=== PATIENT | female | born 1935 | race Caucasian/White ===

== ENCOUNTER → 2017-10-17 | Outpatient (CLI) | payer MEDICARE | LOC: M WHC 09:47 | DX: Z12.31 Encounter for screening mammogram for malignant neoplasm of breast (principal); Z13.820 Encounter for screening for osteoporosis; M85.851 Other specified disorders of bone density and structure, right thigh; M85.852 Other specified disorders of bone density and structure, left thigh; M85.88 Other specified disorders of bone density and structure, other site | CPT/HCPCS: 77067 ==

== ENCOUNTER → 2019-03-27 | Outpatient (CLI) | payer MEDICARE ==
[~2019-03-27] MED LIST: ACET1TAB55 PO; CRES10TA PO; LISI-538 PO; VITACAP8 PO
--- NOTE | 2019-03-27 11:19 | REP ---
Clinical: Preoperative assessment. Hypertension. . Comparison: None . Technique: PA and lateral. Findings: The mediastinum and cardiac silhouette are normal. The lung lackey are clear and without acute consolidation, effusion, or pneumothorax. The skeletal structures are intact and normal. Impression: 1. No acute cardiopulmonary process. Electronically Signed by Andreas Paulino MD 03/27/2019 11:11 A
[2019-03-27 11:43] LABS: BLOOD UREA NITROGEN 18 MG/DL (7-18); CALCIUM LEVEL 10.9 MG/DL (8.8-10.2); CARBON DIOXIDE LEVEL 31 MEQ/L (21-32); CHLORIDE LEVEL 105 MEQ/L (98-107); CREATININE FOR GFR 0.64 MG/DL (0.55-1.30); GLOMERULAR FILTRATION RATE > 60.0 (>32); GLUCOSE, FASTING 102 MG/DL (70-100); SODIUM LEVEL 142 MEQ/L (136-145)
--- NOTE | 2019-03-28 19:50 | ECGEPIP ---
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
== END ==
LOC: M LAB 10:14
PROVIDERS: ATTEND Orthopaedic Surgery
DX: Z01.818 Encounter for other preprocedural examination (principal); M99.73 Connective tissue and disc stenosis of intervertebral foramina of lumbar region

== ENCOUNTER 2020-01-22 19:54 | Inpatient (IN) | payer MEDICARE ==
[~2020-01-22] VITALS: Ht 160 cm; Wt 81.8 kg
[2020-01-22] MEDS ORDERED: traMADol 50 MG TAB PO ONE (21:30)
[2020-01-22] MEDS ORDERED: TRAM-533 PO (21:32)
--- NOTE | 2020-01-22 22:23 | ED PDOC ---
Post-Departure Follow-Up D/W with Dr Kim at bedside. Attempted to ambulate while in immobilzer with crutches, but pt. could not. Will have to admit. Hospitalist called for admission. Consideration for knee surgery. JACQUES HITCHCOCK DO January 22, 2020 22:23
[2020-01-22] MEDS ORDERED: LISI20TA20 PO (22:29)
[2020-01-22] MEDS ORDERED: ACETAMINOPHEN TAB 650MG DOSE (2X325MG) PO PRN (23:15)
[2020-01-22] MEDS ORDERED: DEXTROSE 50% 50 ML SYRINGE IV PRN (23:15)
[2020-01-22] MEDS ORDERED: GLUCAGON INJ 1MG VIAL SC PRN (23:15)
--- NOTE | 2020-01-22 23:19 | HPEPDOC ---
[facility] Medical History & Physical Date of Admission January 22, 2020 Date of Service: January 22, 2020 Primary Care Physician: REJI MARIN MD [facility] Attending Physician: BART CAPPS MD History and Physical CHIEF COMPLAINT: left knee pain HISTORY OF PRESENT ILLNESS: Mago Nieto is an 84-year-old female who presents today with left knee pain. She states that she was washing her feet in a tub and while leaning over to wash them, her knee bent in and she felt a pop. She had immediate pain all around her knee. She was unable to bear weight on her knee. She was brought into the emergency department for further evaluation. She denies any additional symptoms, other than the acute onset of knee pain. In the emergency department, she was evaluated in the initial plan was to return home with a knee immobilizer and follow up outpatient with orthopedic surgery. However, she was unable to bear any weight on the left leg, even in the knee immobilizer. This was discussed with orthopedic surgery, who felt admission was appropriate for potential surgical intervention. PAST MEDICAL HISTORY: 1. Hypertension 2. Hyperlipidemia 3. Osteoarthritis PAST SURGICAL HISTORY: 1. Hysterectomy 2. Appendectomy 3. Bilateral cataracts 4. Left knee arthroscopy for torn meniscus 5. Carpal tunnel release SOCIAL HISTORY: Nonsmoker. No alcohol use. No illicit/IV drug use. 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 FAMILY HISTORY: Noncontributory ALLERGIES: Please see below. REVIEW OF SYSTEMS: CONSTITUTIONAL: Denies fevers, chills, night sweats, fatigue, unexpected change in weight. HEENT: Denies change in vision, change in hearing. CARDIOVASCULAR: Denies chest pain, palpitations, shortness of breath, lightheadedness. RESPIRATORY: Denies dyspnea, cough, wheezing. GASTROINTESTINAL: Denies nausea, vomiting, abdominal pain, diarrhea, constipation, blood in stool. GENITOURINARY: Denies dysuria, urinary frequency, urinary urgency. SKIN: Denies rash, lesions. MUSCULOSKELETAL: Left knee pain as noted in HPI. NEUROLOGICAL: Denies headache, dizziness, weakness. PSYCHIATRIC: Denies change in mood. HOME MEDICATIONS: Please see below. PHYSICAL EXAMINATION: VITAL SIGNS: See below GENERAL: Alert, comfortable, in no acute distress HEENT: Normocephalic, atraumatic, PERRLA, EOMI, moist mucous membranes NECK: Supple, trachea midline, no lymphadenopathy, no JVD CARDIOVASCULAR: Regular rate and rhythm, normal S1 and S2. No murmurs, rubs, or gallops RESPIRATORY: Clear to auscultation bilaterally with equal air entry bilaterally. No wheezing, rhonchi, or rales. ABDOMEN: Soft, nontender, nondistended, bowel sounds present, no masses or hepatosplenomegaly appreciated EXTREMITIES: No cyanosis or edema. Pulses 2+/4 in bilateral upper and lower extremities. Left leg in knee immobilizer. SKIN: [place], warm, dry NEUROLOGIC: Alert and oriented 3 to person, place and time. Cranial nerves 2-12 grossly intact. No focal deficits appreciated PSYCHIATRIC: Mood and affect appropriate LABORATORY DATA: See below. MICROBIOLOGY: Please see below. ASSESSMENT: 84-year-old female presenting with acute injury to the left knee, admitted for possible orthopedic surgical intervention. PLAN: 1. Left knee pain 2/2 trauma. X-ray films reviewed by ED physician, no fractures. Hx of osteoarthritis with plan for TKA. Patient cannot bear weight on the left leg at this point. Orthopedic surgery consulted for possible surgical intervention, appreciate their input and recommendations. Pain control with tramadol. Currently NPO with IV fluids and FSBS every 6 hours for possible surgery, pending orthopedic evaluation in the morning. PT/OT evaluation when appropriate, likely after surgical intervention 2. Cardiac clearance for surgery. Patient has a history of hypertension, hyperlipidemia, otherwise no cardiac history. Ordered EKG to be done in the morning to complete cardiac clearance prior to surgery 3. Hypertension and hyperlipidemia. Continue home lisinopril, hydrochlorothiazide, and rosuvastatin. DVT prophylaxis: Teds and SCDs. No medical prophylaxis due to possible surgical intervention. Disposition: Admitted inpatient to med/surg pending orthopedic evaluation and potential surgical intervention GME attestation: Patient was independently seen and examined, discussed with resident and agree with resident's assessment, plan and management. Vital Signs Vital Signs Date Time Temp Pulse Resp B/P (MAP) Pulse Ox O2 Delivery O2 Flow Rate FiO2 01/22/20 23:02 96.0 86 16 127/60 (82) 97 01/22/20 20:00 Room Air Home Medications Scheduled Lisinopril/Hydrochlorothiazide (Lisinopril-Hctz 20-25 mg Tab) 1 Each Tablet, 1 TAB PO DAILY Rosuvastatin Calcium (Crestor) 10 Mg Tablet, 10 MG PO DAILY Vitamin B Complex (Vitamin B Complex) 1 Each Capsule, 1 CAP PO DAILY Scheduled PRN Acetaminophen (Acetaminophen) 325 Mg Tablet, 650 MG PO QAMP PRN for PAIN TAKES IN THE MORNING FOR ARTHRITIS Allergies Coded Allergies: Penicillins (Verified Allergy, Intermediate, hives, 01/22/20) amoxicillin (Verified Allergy, Intermediate, hives, 01/22/20) clavulanic acid (Verified Allergy, Intermediate, hives, 01/22/20) TAPE (Unverified Allergy, Unknown, 01/22/20) CHILANGO LERMA D.O. January 22, 2020 23:19 BART CAPPS MD January 23, 2020 04:01
[2020-01-22 23:58] VITALS: BP 149/78
[2020-01-23] MEDS ORDERED: traMADol 50 MG TAB PO PRN ×2
[2020-01-23] MEDS: ROSUVASTATIN 10 MG TAB (CRESTOR) PO SCH ×2 (00:19→21:19)
[2020-01-23] MEDS ORDERED: CALCIUM CARBONATE 500 MG CHEW U/D PO PRN (02:00)
[2020-01-23] MEDS: NS 1,000 ML IV SCH ×2 (03:23→15:25)
[2020-01-23 06:17] VITALS: BP 129/66
[2020-01-23 07:41] LABS: HEMATOCRIT 36.5 % (36.0-47.0); HEMOGLOBIN 11.8 g/dl (12.0-15.5); MEAN CORPUSCULAR HEMOGLOBIN 29.1 pg (27.0-33.0); MEAN CORPUSCULAR HGB CONC 32.3 g/dl (32.0-36.5); MEAN CORPUSCULAR VOLUME 89.9 fl (80.0-96.0); PLATELET COUNT, AUTOMATED 235 10^3/uL (150-450); RED BLOOD COUNT 4.06 10^6/uL (4.00-5.40); WHITE BLOOD COUNT 9.3 10^3/uL (4.0-10.0)
[2020-01-23 07:58] LABS: BLOOD UREA NITROGEN 22 MG/DL (7-18); CALCIUM LEVEL 10.2 MG/DL (8.8-10.2); CARBON DIOXIDE LEVEL 26 MEQ/L (21-32); CHLORIDE LEVEL 107 MEQ/L (98-107); CREATININE FOR GFR 0.55 MG/DL (0.55-1.30); GLOMERULAR FILTRATION RATE > 60.0 (>32); GLUCOSE, FASTING 113 MG/DL (70-100); POTASSIUM SERUM 3.9 MEQ/L (3.5-5.1); SODIUM LEVEL 139 MEQ/L (136-145)
[2020-01-23] MEDS ORDERED: CLINDAMYCIN 900 MG in IV 1 EA IV ONE (08:00)
[2020-01-23] MEDS: DOCUSATE SODIUM 100 MG CAP PO SCH ×2 (09:11→21:19)
[2020-01-23] MEDS: lisinopriL 20 MG TAB PO SCH (09:11)
[2020-01-23] MEDS: hydroCHLOROthiazide 25 MG TAB PO SCH (09:11)
[2020-01-23] MEDS: ONDANSETRON 4MG/2ML VIAL IV PRN ×2 (10:26→21:19)
--- NOTE | 2020-01-23 11:24 | IPNPDOC ---
Text Note Date of Service The patient was seen on 01/23/20. NOTE Subjective: Patient complains of nausea and she developed few episodes of vom iting in the morning. Patient denies fever, chills, chest pain, palpitations, diarrhea or dysuria Objective: VITAL SIGNS: Please see below. GENERAL: awake, alert, NAD HEENT: NCAT, anicteric sclera, JENNIFER NECK: supple, no JVD CARDIOVASCULAR EXAMINATION: NS1S2, regular rate/rhythm RESPIRATORY EXAMINATION: CTA b/l, no wheezes/rales/rhonchi ABDOMINAL EXAMINATION: positive bowel sounds x 4, NT EXTREMITIES: no cyanosis, clubbing, edema, left leg in immobilizer SKIN: warm, no rashes. NEUROLOGICAL EXAMINATION: AAO x 3, no motor/sensory deficits PSYCHIATRIC EXAMINATION: calm, normal affect Assessment and plan Patient is 84 years old female with past medical history of hypertension, hyperlipidemia presented hospital with knee injury. Left knee pain Most likely secondary to meniscal tear Orthopedic team proceeded with surgery tomorrow Pain management Hypertension Blood pressures under control Continue home meds Hyperlipidemia Continue statin Nausea/vomiting most likely secondary to pain medications Zofran when necessary VS,Fishbone, I+O VS, Fishbone, I+O Laboratory Tests 01/23/20 07:12 Vital Signs Date Time Temp Pulse Resp B/P (MAP) Pulse Ox O2 Delivery O2 Flow Rate FiO2 01/23/20 09:44 16 01/23/20 09:11 129/66 01/23/20 06:17 98.2 80 96 Room Air I&O- Last 24 Hours up to 6 AM 01/23/20 06:00 Intake Total 0 ml Output Total 0 ml Balance 0 ml SHARMAINE GRAY DO January 23, 2020 11:24
--- NOTE | 2020-01-23 13:15 | REP ---
PELVIS AND LEFT HIP: AP view of the pelvis and AP and frogleg views of the left hip are performed. There is no acute fracture or dislocation. Mild degenerative changes are seen at each hip joint, with mild joint space narrowing, subchondral sclerosis, and spurring. There is mild sclerosis at the sacroiliac joints. IMPRESSION: Mild degenerative changes. No fracture or dislocation. Electronically Signed by Dirk Diaz MD 01/23/2020 09:39 P
--- NOTE | 2020-01-23 13:16 | REP ---
LEFT LOWER LEG: AP and lateral views of the left lower leg are performed. No acute fracture or dislocation is seen. There is moderate diffuse joint space narrowing of the knee with subchondral sclerosis. There is mild spurring of the lower pole of the patella. There is a calcific body in the suprapatellar bursa measuring 2.1 cm. IMPRESSION: Moderate degenerative changes of the knee. No acute fracture or dislocation. Electronically Signed by Dirk Diaz MD 01/23/2020 09:39 P
--- NOTE | 2020-01-23 13:18 | REP ---
LEFT FEMUR: AP and lateral views of the left femur performed. No acute fracture or dislocation is seen. There is mild to moderate joint space narrowing, subchondral sclerosis and spurring at the hip joint. There are moderate diffuse degenerative changes at the knee. IMPRESSION: Degenerative changes without fracture or dislocation. Electronically Signed by Dirk Diaz MD 01/23/2020 09:39 P
[2020-01-23 14:30] VITALS: BP 128/65
[2020-01-23] MEDS ORDERED: SIMETHICONE 80 MG CHEW TAB PO PRN (18:30)
[2020-01-23 20:00] VITALS: BP 110/91
[2020-01-23 20:14] VITALS: BP 126/78
[2020-01-24 06:05] VITALS: BP 108/65
[2020-01-24] MEDS: NS 1,000 ML IV SCH (08:35)
[2020-01-24 08:43] VITALS: BP 108/65
[2020-01-24] MEDS: hydroCHLOROthiazide 25 MG TAB PO SCH (08:43)
[2020-01-24] MEDS: lisinopriL 20 MG TAB PO SCH (08:43)
[2020-01-24] MEDS: DOCUSATE SODIUM 100 MG CAP PO SCH (08:43)
--- NOTE | 2020-01-24 09:07 | CR ---
DATE OF ADMISSION: 01/22/2020 CHIEF COMPLAINT: Left knee pain. HISTORY OF THE PRESENT ILLNESS: This 84-year-old female was seen today for a few hours history of left knee pain. This came on acutely tonight. She was washing her feet in a basin, went to stand up, felt a twist and pop and pain in her knee. It is hard to lift the leg normally, but it was quite painful and sore and the knee somewhat tracking up into the mid femur. No hip or groin pain. No ankle or foot pain. She had a previous left knee arthroscopy many years ago, partial medial meniscectomy it sounds like, as well as possibly advanced patellofemoral osteoarthritis. There is no numbness or tingling, no loss of bowel or bladder sensation or function in her perianal region. No weakness. She has never had back surgery, but she did have sciatica apparently on the left side. This feels a lot worse than that and a lot different as well. She has never had any loose body sensation in her left knee. PAST MEDICAL HISTORY: Includes hypertension, dyslipidemia. MEDICATIONS: Lisinopril and Crestor. ALLERGIES: PENICILLIN, TAPE, AMOXICILLIN, CLAVULANIC ACID. SOCIAL HISTORY: She is the mother of Pete Nolasco, the surgical patient services representative for [employer]. She normally walks with a cane as needed. 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 PHYSICAL EXAM: Vital signs are stable. She is laying supine. There is trace effusion to her left knee. There is no obvious overlying warmth or redness. No signs of infection. No drainage. Normal sensation in the feet. Feet are warm and well perfused. Good pedal pulses. No hip pain with log roll range or direct palpation of the left hip. No groin pain. Normal sensation in the lower extremity. On attempted range of motion of the knee, it is extremely painful for her at the knee. Range of motion actually is only about 0 to 115 before limited by pain. When feeling for effusion, I felt an obvious loose body that I am able to move around in the suprapatellar pouch that is quite sore for her. No proximal tibia pain or distal femur pain on direct palpation. Radiographs were reviewed of the hip on left side, AP, lateral including the pelvis. There are no acute abnormalities. No hip fracture. Femur x-rays were reviewed, AP, lateral proximally and distally. Patella appears to be well seated on the AP and lateral radiographs. There is a calcific density in the suprapatellar pouch that is visible on AP and lateral radiographs. There is advanced tricompartmental osteoarthritis of the left knee. Radiographs were taken of the tibia and fibula and left lower leg. These appear to show no fracture in the lower extremity. ASSESSMENT/PLAN: This 84-year-old female appears to have a loose body in her left knee. This appears to be an acute process that was precipitated by a twisting injury to her left knee this evening. It appears to be likely a fractured osteophyte resulting in loose body and acute knee pain with locking sensations. We will try to initially treat this nonsurgically with a knee immobilizer, weightbearing as tolerated. If she stays unable to ambulate and be discharged home tonight, she could be admitted under myself or the hospitalist service. She will attempt to be mobilized, weightbearing as tolerated with the knee mobilizer and crutches and/or a wheelchair. If this would continue over the next few days or weeks to give her mechanical symptoms or pain, this would be a reasonably straight forward procedure to perform a left knee arthroscopy and loose body removal. That would certainly be the surgical option, although my preference would be to just start her home tonight into her son's care and followup in the office early next week to see how this is feeling for her and further discuss her treatment options. I communicated this to her son as well as to Mago and the emergency room physician looking after her.
--- NOTE | 2020-01-24 13:22 | DS.PDOC ---
Discharge Summary General Date of Admission January 22, 2020 at 23:11 Date of Discharge 01/24/20 Discharge Summary PROCEDURES PERFORMED DURING STAY: [None]. ADMITTING DIAGNOSES: Hypertension Left knee pain Hyperlipidemia Nausea/vomiting DISCHARGE DIAGNOSES: Hypertension Left knee pain Hyperlipidemia Nausea/vomiting COMPLICATIONS/CHIEF COMPLAINT: Arthritis Of Knee, Degenerative, Unable To Ambulat. HISTORY OF PRESENT ILLNESS: This 84-year-old female was seen today for a few hours history of left knee pain. This came on acutely tonight. She was washing her feet in a basin, went to stand up, felt a twist and pop and pain in her knee. It is hard to lift the leg normally, but it was quite painful and sore and the knee somewhat tracking up into the mid femur. No hip or groin pain. No ankle or foot pain. She had a previous left knee arthroscopy many years ago, partial medial meniscectomy it sounds like, as well as possibly advanced patellofemoral osteoarthritis. There is no numbness or tingling, no loss of bowel or bladder sensation or function in her perianal region. No weakness. She has never had back surgery, but she did have sciatica apparently on the left side. This feels a lot worse than that and a lot different as well. She has never had any loose body sensation in her left knee. HOSPITAL COURSE: This 84-year-old female appears to have a loose body in her left knee. This appears to be an acute process that was precipitated by a twisting injury to her left knee this evening. It appears to be likely a fractured osteophyte resulting in loose body and acute knee pain with locking sensations. We will try to initially treat this nonsurgically with a knee immobilizer, weightbearing as tolerated. If she stays unable to ambulate and be discharged home tonight, she could be admitted under ortho or the hospitalist service. She will attempt to be mobilized, weightbearing as tolerated with the knee mobilizer and crutches and/or a wheelchair. If this would continue over the next few days or weeks to give her mechanical symptoms or pain, this would be a reasonably straight forward procedure to perform a left knee arthroscopy and loose body removal. DISCHARGE MEDICATIONS: Please see below. ALLERGIES: Please see below. PHYSICAL EXAMINATION ON DISCHARGE: VITAL SIGNS: Please see below. GENERAL: awake, alert, NAD HEENT: NCAT, anicteric sclera, JENNIFER NECK: supple, no JVD CARDIOVASCULAR EXAMINATION: NS1S2, regular rate/rhythm RESPIRATORY EXAMINATION: CTA b/l, no wheezes/rales/rhonchi ABDOMINAL EXAMINATION: positive bowel sounds x 4, NT EXTREMITIES: no cyanosis, clubbing, edema, left leg in immobilizer SKIN: warm, no rashes. NEUROLOGICAL EXAMINATION: AAO x 3, no motor/sensory deficits PSYCHIATRIC EXAMINATION: calm, normal affect LABORATORY DATA: Please see below. IMAGING: LEFT FEMUR: AP and lateral views of the left femur performed. No acute fracture or dislocation is seen. There is mild to moderate joint space narrowing, subchondral sclerosis and spurring at the hip joint. There are moderate diffuse degenerative changes at the knee. IMPRESSION: Degenerative changes without fracture or dislocation. PROGNOSIS: Fair ACTIVITY: [As tolerated]. DIET: cardiac DISCHARGE PLAN: Follow-up with PCP and orthopedic surgeon DISPOSITION: 01 Home, Self-Care. DISCHARGE CONDITION: [Stable]. TIME SPENT ON DISCHARGE: Greater than 20 minutes. Vital Signs/I&Os Vital Signs Date Time Temp Pulse Resp B/P (MAP) Pulse Ox O2 Delivery O2 Flow Rate FiO2 01/24/20 08:43 108/65 01/24/20 06:05 98.4 72 20 97 Room Air I&O- Last 24 Hours up to 6 AM 01/24/20 06:00 Intake Total 1440 ml Output Total 775 ml Balance 665 ml Discharge Medications Scheduled Lisinopril/Hydrochlorothiazide (Lisinopril-Hctz 20-25 mg Tab) 1 Each Tablet, 1 TAB PO DAILY, (Reported) Rosuvastatin Calcium (Crestor) 10 Mg Tablet, 10 MG PO DAILY, (Reported) Vitamin B Complex (Vitamin B Complex) 1 Each Capsule, 1 CAP PO DAILY, (Reported) Scheduled PRN Acetaminophen (Acetaminophen) 325 Mg Tablet, 650 MG PO QAMP PRN for PAIN, (Reported) TAKES IN THE MORNING FOR ARTHRITIS Allergies Coded Allergies: Penicillins (Verified Allergy, Intermediate, hives, 01/22/20) amoxicillin (Verified Allergy, Intermediate, hives, 01/22/20) clavulanic acid (Verified Allergy, Intermediate, hives, 01/22/20) TAPE (Unverified Allergy, Unknown, 01/22/20) SHARMAINE GRAY DO January 24, 2020 13:22
--- NOTE | 2020-01-25 09:49 | IPN ---
DATE: 01/24/2020 CHIEF COMPLAINT: Post admission day #2 left knee loose body. HISTORY OF PRESENT ILLNESS: Day #3 of injury of twisting injury to her left knee while she was washing her feet. She seems to have a loose body. or catching inside of her knee, although she has been using a knee immobilizer to get up to the washroom. She feels like she is a little bit more mobile and the pain is settling down. PHYSICAL EXAMINATION: She is a well-appearing 84-year-old female. She is alert and times three. She is in a knee immobilizer. Appears to be settling down. No redness or warmth about the. Normal station and motor function throughout the foot. ASSESSMENT AND PLAN: This 84-year-old female can be weightbearing as tolerated. She can discontinue the knee immobilizer as she tolerates. We will work on discharge planning. She will need some help at home likely. We will see how today goes in physical therapy. If she needs the knee immobilizer to ambulate, that is certainly reasonable, although she is not requiting this for treatment. Followup in the clinic.
== END 2020-01-24 12:35 | disposition home or self-care (01) | DRG 558 ==
LOC: EDBD 19:54 → M ED 19:54 → M ED INP 23:11 → ENRESERV 23:20 → M MS5PR 23:58
PROVIDERS: ADMIT Internal Medicine; ATTEND Internal Medicine
DX: M25.762 Osteophyte, left knee (principal); I10 Essential (primary) hypertension; E78.5 Hyperlipidemia, unspecified; M19.90 Unspecified osteoarthritis, unspecified site; M25.462 Effusion, left knee; M23.42 Loose body in knee, left knee; R11.2 Nausea with vomiting, unspecified; M17.12 Unilateral primary osteoarthritis, left knee; Z98.41 Cataract extraction status, right eye; Z98.42 Cataract extraction status, left eye; Z90.49 Acquired absence of other specified parts of digestive tract; Z79.899 Other long term (current) drug therapy; Z88.0 Allergy status to penicillin; Z88.8 Allergy status to other drugs, medicaments and biological substances; Z91.048 Other nonmedicinal substance allergy status

== ENCOUNTER 2021-04-25 05:09 | Emergency (ER) | payer MEDICARE ==
[~2021-04-25] VITALS: Ht 157.5 cm; Wt 79.5 kg
[~2021-04-25 05:09] MED LIST changes: -LISI-538 PO; +LISI20TA20 PO; +LISI20TA33 PO; +TRAM-533 PO
[2021-04-25] MEDS ORDERED: vitamin d PO (05:29)
[2021-04-25] MEDS ORDERED: LISI20TA35 PO (05:29)
[2021-04-25] MEDS ORDERED: NS 1,000 ML IV ONE (07:35)
[2021-04-25] MEDS ORDERED: ACETAMINOPHEN 500 MG TAB PO ONE (07:35)
[2021-04-25 08:03] VITALS: BP 125/86
[2021-04-25 08:09] LABS: BASO % 0.4 % (0.0-1.0); EOS % 0.2 % (0.0-3.0); HEMATOCRIT 38.6 % (36.0-47.0); HEMOGLOBIN 12.4 g/dl (12.0-15.5); LYMPH # 1.1 10^3/uL (1.5-5.0); LYMPH % 10.3 % (24.0-44.0); MEAN CORPUSCULAR HEMOGLOBIN 28.8 pg (27.0-33.0); MEAN CORPUSCULAR HGB CONC 32.1 g/dl (32.0-36.5); MEAN CORPUSCULAR VOLUME 89.6 fl (80.0-96.0); MONO # 0.5 10^3/uL (0.0-0.8); MONO % 4.5 % (2.0-8.0); NEUTROPHILS # 8.9 10^3/uL (1.5-8.5); NEUTROPHILS % 83.8 % (36.0-66.0); PLATELET COUNT, AUTOMATED 251 10^3/uL (150-450); RED BLOOD COUNT 4.31 10^6/uL (4.00-5.40); WHITE BLOOD COUNT 10.6 10^3/uL (4.0-10.0)
[2021-04-25] MEDS ORDERED: ISOVUE-370 76% 100ML VIAL As Ordered ONE (08:12)
[2021-04-25 08:33] LABS: ALBUMIN 3.8 GM/DL (3.2-5.2); BILIRUBIN,DIRECT 0.1 MG/DL (0.0-0.2); BILIRUBIN,TOTAL 0.5 MG/DL (0.2-1.0); TOTAL PROTEIN 7.2 GM/DL (6.4-8.2)
--- NOTE | 2021-04-25 08:55 | REP ---
INDICATION: RLQ pain, h/o appendectomy COMPARISON: None. TECHNIQUE: CT Scan of the abdomen and pelvis was performed with intravenous administration of 100 cc of Isovue 370, without oral contrast. Sagittal and coronal reconstruction images are performed. FINDINGS: Lung bases: Unremarkable. Liver: There is a 3.5 cm cyst in the left lobe of the liver superiorly Gallbladder: Unremarkable. 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 Adrenals: Normal. Pancreas: Normal. Kidneys: There is a 1.2 cm calculus at the right ureteropelvic junction causing moderate right hydronephrosis. There is an adjacent right intrarenal calculus measuring 9 mm in diameter. There is a probable cyst of the lower pole the right kidney approximately 1 cm in diameter. Small and large bowel: There is colonic diverticulosis without evidence of acute diverticulitis. Free fluid: None. Abdominal aorta: No aneurysm or dissection. Adenopathy: None. Appendix: Prior appendectomy. Osseous structures: There are degenerative changes of the spine without compression deformity. There is mild anterolisthesis of L4 on L5 due to posterior facet arthropathy.. Pelvis: No mass. Prior hysterectomy. IMPRESSION: There is a 1.2 cm calculus at the right ureteropelvic junction causing moderate right hydronephrosis. There is an adjacent right intrarenal calculus measuring 9 mm in diameter. <Electronically signed by Dirk Diaz > 04/25/21 [id number]
== END 2021-04-25 13:39 | disposition home or self-care (01) ==
LOC: M ED 05:09
DX: N13.2 Hydronephrosis with renal and ureteral calculous obstruction (principal); I10 Essential (primary) hypertension; E78.5 Hyperlipidemia, unspecified; G89.29 Other chronic pain; M54.9 Dorsalgia, unspecified; K21.9 Gastro-esophageal reflux disease without esophagitis; Z87.19 Personal history of other diseases of the digestive system; Z79.899 Other long term (current) drug therapy; Z88.0 Allergy status to penicillin; Z88.8 Allergy status to other drugs, medicaments and biological substances; Z91.048 Other nonmedicinal substance allergy status
CPT/HCPCS: 74177; 80047; 80076; 81001; 83605; 83690; 85025; 96360; 96361; 99284; Q9967

== ENCOUNTER 2021-04-28 05:22 | Day surgery (SDC) | payer MEDICARE ==
[~2021-04-28] VITALS: Ht 157.5 cm; Wt 79.5 kg
[~2021-04-28 05:22] MED LIST changes: +LISI20TA35 PO; +vitamin d PO
[2021-04-28] MEDS ORDERED: PERC5TAB12 PO (05:35)
[2021-04-28] MEDS ORDERED: ACET-897 PO (05:35)
[2021-04-28 06:10] LABS: BASO % 0.4 % (0.0-1.0); EOS # 0.1 10^3/uL (0.0-0.5); EOS % 0.7 % (0.0-3.0); HEMATOCRIT 35.6 % (36.0-47.0); HEMOGLOBIN 11.7 g/dl (12.0-15.5); LYMPH # 1.5 10^3/uL (1.5-5.0); LYMPH % 14.6 % (24.0-44.0); MEAN CORPUSCULAR HEMOGLOBIN 28.9 pg (27.0-33.0); MEAN CORPUSCULAR HGB CONC 32.9 g/dl (32.0-36.5); MEAN CORPUSCULAR VOLUME 87.9 fl (80.0-96.0); MONO # 1.1 10^3/uL (0.0-0.8); MONO % 10.2 % (2.0-8.0); NEUTROPHILS # 7.7 10^3/uL (1.5-8.5); NEUTROPHILS % 73.5 % (36.0-66.0); PLATELET COUNT, AUTOMATED 215 10^3/uL (150-450); RED BLOOD COUNT 4.05 10^6/uL (4.00-5.40); WHITE BLOOD COUNT 10.5 10^3/uL (4.0-10.0)
[2021-04-28 06:43] LABS: ALBUMIN 3.2 GM/DL (3.2-5.2); ALT/SGPT 17 U/L (12-78); BILIRUBIN,DIRECT 0.2 MG/DL (0.0-0.2); BILIRUBIN,TOTAL 0.8 MG/DL (0.2-1.0); BLOOD UREA NITROGEN 23 MG/DL (7-18); CALCIUM LEVEL 10.2 MG/DL (8.8-10.2); CARBON DIOXIDE LEVEL 25 MEQ/L (21-32); CHLORIDE LEVEL 103 MEQ/L (98-107); CPK CREATINE PHOSPHOKINASE 117 U/L (26-192); CREATININE FOR GFR 1.31 MG/DL (0.55-1.30); GLOMERULAR FILTRATION RATE 41.2 (>32); GLUCOSE, FASTING 98 MG/DL (70-100); LIPASE 238 U/L (73-393); MB/CK RELATIVE INDEX 1.71 (< OR =4); SODIUM LEVEL 138 MEQ/L (136-145); TOTAL PROTEIN 6.7 GM/DL (6.4-8.2); TROPONIN I < 0.02 NG/ML (< 0.10)
[2021-04-28] MEDS ORDERED: LR 1,000 ML IV SCH (07:00)
[2021-04-28] MEDS ORDERED: ONDANSETRON 4MG/2ML VIAL IV ONE (07:00)
[2021-04-28] MEDS ORDERED: MORPHINE 2 MG/ML 1ML VIAL (J2270) IV ONE (07:00)
[2021-04-28 07:33] LABS: RSV AMPLIFICATION NEGATIVE (NEGATIVE)
[2021-04-28] MEDS ORDERED: D31000TA2 PO (07:46)
[2021-04-28] MEDS ORDERED: HOME MED LIST COMPLETE! XX SCH (07:50)
[2021-04-28] MEDS ORDERED: fentaNYL 100 MCG/2 ML INJECTION (J3010) As Ordered ONE (08:22)
[2021-04-28] MEDS ORDERED: dexameTHASONE 4 MG/ML 1ML VIAL (J1100 PER 1MG) As Ordered ONE (08:22)
[2021-04-28] MEDS ORDERED: ONDANSETRON 4MG/2ML VIAL As Ordered ONE (08:22)
[2021-04-28] MEDS ORDERED: propofoL 200 MG/20 ML VIAL As Ordered ONE (08:22)
[2021-04-28] MEDS ORDERED: LIDOCAINE 2% 100MG/5ML SDV (FOR ANES.) As Ordered ONE (08:22)
[2021-04-28] MEDS ORDERED: MIDAZOLAM INJ 2MG/2ML VIAL (J2250 PER 1MG) As Ordered ONE (08:22)
--- NOTE | 2021-04-28 08:23 | REPVR ---
PROCEDURE INFORMATION: Exam: XR Abdomen Exam date and time: 04/28/2021 6:39 AM Age: 85 years old Clinical indication: Condition or disease; Other: Kidney stone; Additional info: 1.[address] 04/25 R uvj, seeing if movement TECHNIQUE: Imaging protocol: XR of the abdomen. Views: Frontal supine view of the abdomen. 1 View. COMPARISON: CT ABD/PEL W/IV CONTRAST ONLY 04/25/2021 8:20 AM FINDINGS: Gastrointestinal tract: Normal. No bowel dilation. Organs: Stable position of right renal calculi. Bones/joints: Multilevel degenerative disease of the lumbar spine. Degenerative changes in the bilateral sacroiliac joints. Osteitis pubis. IMPRESSION: Stable position of right renal calculi. Electronically signed by: Jimmy Golden On 04/28/2021 08:23:21 AM
[2021-04-28] MEDS ORDERED: LIDOCAINE 2% 5ML JELLY UROJET As Ordered ONE (08:48)
[2021-04-28] MEDS ORDERED: CONRAY-60 60% 50ML VIAL (Q9961) As Ordered ONE (08:48)
[2021-04-28] MEDS ORDERED: LevoFLOXacin 500MG/100ML IV BAG (J1956 PER 250MG) As Ordered ONE (08:56)
--- NOTE | 2021-04-28 08:59 | SMCUROLCON ---
Urology Consultation General Date of Consultation 04/28/21 Reason For Consultation This patient is seen for Kidney Stones. History of Present Illness This is an 85 y/o F w/ a PMH significant for diverticulosis, HTN, and HL, presenting to the hospital for the second time this week for severe R abdominal and groin pain. She came in a few days ago and was found to have mild to moderate R hydro 2/2 a 1.2cm stone at the R UPJ. There were also 2 additional stones in the lower pole of the R kidney, each measuring 8mm in size. There were no L sided stones. She notes that she had been having mild R abd and groin pain intermittently for a few months but it became more severe this week. She has had nausea but no vomiting. She denies dysuria. She denies fevers or chills. She has never had kidney stones previously. Past Medical History Medical History see HPI Surgical Hstory Hysterectomy Appendectomy Medications Current Medications Current Medications Medications (Trade) Dose Ordered Sig/Jo Route PRN Reason Start Time Stop Time Status Last Admin Dose Admin Home Med (Home Med List Complete!) ASDIRECTED XX 04/28/21 07:50 04/28/21 07:48 DC Lactated Ringer's 1,000 ml @ 100 mls/hr Q10H IV 04/28/21 07:00 04/28/21 07:31 Allergies Allergies: Coded Allergies: Penicillins (Verified Allergy, Intermediate, hives, 01/22/20) amoxicillin (Verified Allergy, Intermediate, hives, 01/22/20) clavulanic acid (Verified Allergy, Intermediate, hives, 01/22/20) TAPE (Unverified Allergy, Unknown, 01/22/20) Review of Systems Constitutional: Denies: Fever, Chills, Sweats, Weakness, Malaise Skin: Denies: Rash, Lesions, Breakdown, Nail Changes Pulmonary: Denies: Dyspnea, Cough Cardiovascular: Denies Chest Pain, Denies Palpitations Gastrointestinal: Reports: Nausea, Abdominal Pain; Denies: Vomiting, Diarrhea Genitourinary: Denies: Dysuria, Frequency, Incontinence, Hematuria Musculoskeletal: Denies: Neck Pain, Back Pain Neurological: Denies: Weakness, Numbness, Incoordination, Change in Speech Psych: Reports: Mood Normal; Denies: Anxiety, Depression Physical Examination General Exam: Alert, Cooperative, No Acute Distress Chest Exam: Normal air movement Heart Exam: Rate Normal Abdomen Exam: Soft, Tenderness (mild RLQ) Skin Exam: Nl turgor and temperature Neuro Exam: Normal Speech Psych Exam: Mental status NL, Mood NL Vital Signs/I&O Vital Signs Date Time Temp Pulse Resp B/P (MAP) Pulse Ox O2 Delivery O2 Flow Rate FiO2 04/28/21 08:16 97.4 87 18 140/65 (90) 95 04/28/21 06:45 Room Air Laboratory Data 24H Labs Laboratory Tests 2 04/28/21 05:59: Immature Granulocyte % (Auto) 0.6, Neutrophils (%) (Auto) 73.5H, Lymphocytes (%) (Auto) 14.6L, Monocytes (%) (Auto) 10.2H, Eosinophils (%) (Auto) 0.7, Basophils (%) (Auto) 0.4, Neutrophils # (Auto) 7.7, Lymphocytes # (Auto) 1.5, Monocytes # (Auto) 1.1H, Eosinophils # (Auto) 0.1, Basophils # (Auto) 0.0, Nucleated Red Blood Cells % (auto) 0.0, Anion Gap 10, Glomerular Filtration Rate 41.2, Calcium Level 10.2, Total Bilirubin 0.8#, Direct Bilirubin 0.2, Aspartate Amino Transf (AST/SGOT) 17, Alanine Aminotransferase (ALT/SGPT) 17, Alkaline Phosphatase 51, Total Creatine Kinase 117, Creatine Kinase MB 2.0, Creatine Kinase MB Relative Index 1.71, Troponin I < 0.02, Total Protein 6.7, Albumin 3.2, Albumin/Globulin Ratio 0.9L, Lipase 238 04/28/21 06:31: Coronavirus (COVID-19)(PCR) NEGATIVE, Influenza Type A (RT-PCR) NEGATIVE, Influe nza Type B (RT-PCR) NEGATIVE, Respiratory Syncytial Virus (PCR) NEGATIVE CBC/BMP Laboratory Tests 04/28/21 05:59 Assessment This is an 85 y/o M presenting to the ER for the second time this week for R abd and groin pain 2/2 a 1.2cm R UPJ stone. I recommended that we take her to the OR today for a cystoscopy and R ureteral stent placement. After a discussion of the risks and benefits of the procedure, informed consent was signed. Plan - informed consent signed - levaquin 500mg OCOR - NPO - patient will be seen in office postop to arrange for a R ureteroscopy w/ laser lithotripsy in a few wks after she gets medical clearance CHRIS CORBETT MD Apr 28, 2021 08:59
[2021-04-28] MEDS ORDERED: LevoFLOXacin IV 500 MG in IV 1 EA IV ONE (09:15)
--- NOTE | 2021-04-28 10:02 | REP ---
INDICATION: RIGHT STENT PLACEMENT. COMPARISON: CT 04/25/2021. TECHNIQUE: Two C-arm views abdomen and pelvis. FINDINGS: Contrast partially opacifies the right pelvocaliceal system. A right ureteral stent is placed, the proximal end is coiled in the right renal pelvis and the distal end is coiled in the right inferior pelvis. IMPRESSION: Fluoroscopy dose 14.4 mGy. <Electronically signed by Dirk Diaz > 04/28/21 [id number]
[2021-04-28 10:30] VITALS: BP 133/70
--- NOTE | 2021-04-28 11:35 | RO ---
OPERATIVE NOTE DATE OF OPERATION: 04/28/2021 PREOPERATIVE DIAGNOSIS: Right kidney stones. POSTOPERATIVE DIAGNOSIS: Right kidney stones. PROCEDURES: 1. Cystoscopy. 2. Right ureteral stent placement. 3. Right retrograde pyelogram with intraoperative interpretation of images. SURGEON: Miguel Ho MD. ACCREDITED FARM MANAGER: None. ANESTHESIA: MAC. OPERATIVE INDICATIONS: This is an 85-year-old female who presented to the emergency room a few days ago with right-sided abdominal and groin pain. She was found to have an obstructing 1.2 cm right ureteropelvic junction stone, as well as two additional 8-mm stones in the right kidney. Her pain was controlled at the time and she was discharged to home. She came back to the emergency room today with worsening pain, and therefore, it was recommended that she be brought to the operating room today for the above listed procedure to help with her pain. DESCRIPTION OF PROCEDURE: The patient was brought to the operating room and MAC anesthesia was administered. Prophylactic antibiotics were infused. She was placed in the dorsal lithotomy position, prepped, and draped in the usual sterile fashion. A rigid cystoscope was inserted into the urethral meatus and advanced into the bladder. A guidewire was advanced up the right collecting system. At this point, a 5-Italian open-ended ureteral catheter was advanced up the right collecting system. The guidewire was removed. At this point, I aspirated fluid from her right kidney and the urine appeared clear with no sign of infection. I then shot a retrograde pyelogram and it was notable for severe right hydronephrosis with no extravasation. I advanced a guidewire back up the right collecting system and then removed the ureteral catheter. I utilized a guidewire to advance a 6-Italian x 22-32 cm JJ ureteral stent up the right collecting system. The wire was removed and there were adequate curls of the stent in the right renal pelvis and in the bladder. The bladder was emptied of all fluids and this marked the conclusion of the procedure. The patient was then taken out of the dorsal lithotomy position, awakened from anesthesia, and transported to the recovery room in stable condition. ESTIMATED BLOOD LOSS: 5 mL. COMPLICATIONS: None. SPECIMEN: None. PLAN: The patient will be discharged to home assuming her pain is controlled. We will schedule a followup in the office. At that point, we will get her set up for a right ureteroscopy with laser lithotripsy after she gets medical clearance.
--- NOTE | 2021-05-01 13:52 | ECGEPIP ---
[facility] - ED Test Date: 2021-04-28 Pat Name: ELVIRA FOLEY Department: Room: - Gender: Female Medication Aide: LEORA RN : [id number] Requested By: CATHERINE Ashley Order Number: [id number] Reading MD: Tayla Salgado Measurements Intervals [place] Rate: 99 P: 33 NV: 174 QRS: 26 QRSD: 86 T: 2 QT: 340 QTc: 436 Interpretive Statements Sinus rhythm with premature supraventricular complexes NSTTW abnormalities decreased rate 03/27/19 Electronically Signed on 05-01-2021 13:52:24 EDT by Tayla Salgado
== END 2021-04-28 10:35 | disposition home or self-care (01) ==
LOC: M ED 05:22 → M SDC 07:59
PROVIDERS: ATTEND Urology
DX: N20.0 Calculus of kidney (principal); N13.39 Other hydronephrosis; R11.2 Nausea with vomiting, unspecified; I10 Essential (primary) hypertension; E78.5 Hyperlipidemia, unspecified; K57.90 Diverticulosis of intestine, part unspecified, without perforation or abscess without bleeding; K21.9 Gastro-esophageal reflux disease without esophagitis; Z88.0 Allergy status to penicillin; Z88.1 Allergy status to other antibiotic agents; Z91.048 Other nonmedicinal substance allergy status; Z79.899 Other long term (current) drug therapy
CPT/HCPCS: 52332; 74018; 74420; 80048; 80076; 82550; 82553; 83690; 84484; 85025; 87631; 93005; 93041; 96374; 96375; 99285; C1769; C2617; J1100; J1956; J2250; J2270; J2405; J3010; Q9961

== ENCOUNTER → 2021-05-29 | Outpatient (CLI) | payer MEDICARE ==
[~2021-05-29] MED LIST changes: +ACET-897 PO; +D31000TA2 PO; +PERC5TAB12 PO
== END ==
LOC: M PLAIMG 08:56
PROVIDERS: ATTEND Nurse Practitioner Women's Health
DX: N13.2 Hydronephrosis with renal and ureteral calculous obstruction (principal)

== ENCOUNTER → 2021-05-29 | Outpatient (CLI) | payer MEDICARE ==
--- NOTE | 2021-05-29 09:38 | REP ---
INDICATION: ENCOUNTER FOR OTHER PREPROCEDURAL EXAMINATION COMPARISON: 03/27/2019 TECHNIQUE: PA and lateral. FINDINGS: The mediastinum and cardiac silhouette are normal. The lung lackey demonstrate chronic appearing changes without acute consolidation, effusion, or pneumothorax. The skeletal structures demonstrate osteopenia and age-related multilevel degenerative changes through the thoracic spine and shoulders. IMPRESSION: No acute cardiopulmonary process. <Electronically signed by Andreas Paulino > 05/29/21 0934
[2021-05-29 13:39] LABS: HEMATOCRIT 38.9 % (36.0-47.0); HEMOGLOBIN 12.1 g/dl (12.0-15.5); MEAN CORPUSCULAR HEMOGLOBIN 28.1 pg (27.0-33.0); MEAN CORPUSCULAR HGB CONC 31.1 g/dl (32.0-36.5); MEAN CORPUSCULAR VOLUME 90.5 fl (80.0-96.0); PLATELET COUNT, AUTOMATED 280 10^3/uL (150-450); WHITE BLOOD COUNT 8.4 10^3/uL (4.0-10.0)
[2021-05-29 13:50] LABS: INR 0.92; PROTHROMBIN TIME 12.8 SECONDS (12.7-14.5)
[2021-05-29 14:18] LABS: BLOOD UREA NITROGEN 19 MG/DL (7-18); CREATININE FOR GFR 0.67 MG/DL (0.55-1.30); GLUCOSE, FASTING 96 MG/DL (70-100)
[2021-05-29 14:19] LABS: ALBUMIN 3.8 GM/DL (3.2-5.2); ALT/SGPT 15 U/L (12-78); BILIRUBIN,TOTAL 0.5 MG/DL (0.2-1.0); CALCIUM LEVEL 10.6 MG/DL (8.8-10.2); CARBON DIOXIDE LEVEL 32 MEQ/L (21-32); CHLORIDE LEVEL 108 MEQ/L (98-107); GLOMERULAR FILTRATION RATE > 60.0 (>32); SODIUM LEVEL 142 MEQ/L (136-145); TOTAL PROTEIN 7.3 GM/DL (6.4-8.2)
== END ==
LOC: M PLAIMG 08:53
PROVIDERS: ATTEND Family Medicine
DX: Z01.818 Encounter for other preprocedural examination (principal); Z79.01 Long term (current) use of anticoagulants

== ENCOUNTER → 2021-05-31 | Outpatient (CLI) | payer MEDICARE | LOC: M LABSMTC 09:09 | PROVIDERS: ATTEND Anesthesiology | DX: Z01.818 Encounter for other preprocedural examination (principal); Z11.52 Encounter for screening for COVID-19 ==

== ENCOUNTER → 2021-06-01 | Outpatient (REF) | payer MEDICARE ==
[2021-06-01 17:03] LABS: APPEARANCE, URINE CLOUDY (CLEAR); BACTERIA, URINE AUTO NEGATIVE (NEGATIVE); BILIRUBIN, URINE AUTO NEGATIVE (NEGATIVE); BLOOD, URINE BLOOD 3+ (NEGATIVE); COLOR, URINE AMBER (YELLOW); GLUCOSE, URINE (UA) AUTO NEGATIVE (NEGATIVE); KETONE, URINE AUTO NEGATIVE (NEGATIVE); LEUKOCYTE ESTERASE, URINE AUTO 2+ (NEGATIVE); MUCUS, URINE SMALL (NEGATIVE); NITRITE, URINE AUTO NEGATIVE (NEGATIVE); PROTEIN, URINE AUTO 2+ mg/dL (NEGATIVE); RBC, URINE AUTO TNTC /HPF (0-3); SPECIFIC GRAVITY URINE AUTO 1.015 (1.002-1.035); SQUAMOUS EPITHELIAL CELL UR AU 12 /HPF (0-6); UROBILINOGEN, URINE AUTO 0.2 mg/dL (0.0-2.0); WBC, URINE AUTO 35 /HPF (0-3)
== END ==
LOC: M SMT 16:01
PROVIDERS: ATTEND Nurse Practitioner Women's Health
DX: Z01.818 Encounter for other preprocedural examination (principal); N13.2 Hydronephrosis with renal and ureteral calculous obstruction

== ENCOUNTER 2021-06-05 12:38 | Day surgery (SDC) | payer MEDICARE ==
[~2021-06-05] VITALS: Ht 157.5 cm; Wt 72.3 kg
[~2021-06-05 12:38] MED LIST changes: +CIPROFLOXACIN 400 MG in IV 1 EA IV ONE; +LIDOCAINE 1% MDV 20ML VIAL SQ PRN; +LR 1,000 ML IV ONE
[2021-06-05] MEDS ORDERED: propofoL 200 MG/20 ML VIAL As Ordered ONE (13:04)
[2021-06-05] MEDS ORDERED: LIDOCAINE 2% 100MG/5ML SDV (FOR ANES.) As Ordered ONE (13:05)
[2021-06-05] MEDS ORDERED: MIDAZOLAM INJ 2MG/2ML VIAL (J2250 PER 1MG) As Ordered ONE (13:26)
[2021-06-05] MEDS ORDERED: fentaNYL 100 MCG/2 ML INJECTION (J3010) As Ordered ONE (13:26)
[2021-06-05] MEDS ORDERED: LevoFLOXacin IV 500 MG in IV 1 EA IV ONE (14:55)
[2021-06-05] MEDS ORDERED: CONRAY-60 60% 50ML VIAL (Q9961) As Ordered ONE (14:59)
[2021-06-05] MEDS ORDERED: dexameTHASONE 4 MG/ML 1ML VIAL (J1100 PER 1MG) As Ordered ONE (15:09)
[2021-06-05] MEDS ORDERED: ONDANSETRON 4MG/2ML VIAL As Ordered ONE (15:09)
[2021-06-05] MEDS ORDERED: ACETAMINOPHEN 1000MG 100ML IV BTL (OFIRMEV) (J0131 PER 10MG) As Ordered ONE (15:31)
--- NOTE | 2021-06-05 16:40 | REP ---
INDICATION: RIGHT STENT PLACEMENT. COMPARISON: None. TECHNIQUE: Intraoperative fluoroscopic imaging using portable C-arm technique. FINDINGS: Single image demonstrates the patient to be status post satisfactory right ureteral stent placement. Total fluoroscopic time 17 seconds. IMPRESSION: Satisfactory right ureteral stent placement. <Electronically signed by Andreas Paulino > 06/05/21 [id number]
[2021-06-05] MEDS ORDERED: fentaNYL 100 MCG/2 ML INJECTION (J3010) IV PRN (17:30)
[2021-06-05] MEDS ORDERED: ACETAMINOPHEN TAB 650MG DOSE (2X325MG) PO PRN (17:30)
[2021-06-05] MEDS ORDERED: LR 1,000 ML IV SCH (17:30)
[2021-06-05] MEDS ORDERED: ONDANSETRON 4MG/2ML VIAL IV PRN (17:30)
[2021-06-05] MEDS ORDERED: PERCOCET 5MG/325MG TAB PO PRN (17:30)
[2021-06-05 19:13] VITALS: BP 150/71
--- NOTE | 2021-06-06 08:20 | RO ---
OPERATIVE NOTE DATE OF OPERATION: 06/05/2021 PREOPERATIVE DIAGNOSIS: Right kidney stones. POSTOPERATIVE DIAGNOSIS: Right kidney stones. PROCEDURE: Cystoscopy, right ureteroscopy with laser lithotripsy and basket extraction of stones, right ureteral pyelogram with intraoperative interpretative images, right ureteral stent exchange. SURGEON: Miguel Ho MD [employer]ILES: None. ANESTHESIA: General. INDICATIONS: An 85-year-old female, who had a right ureteral stent placed approximately one month ago for an obstructing right ureteral pelvic junction stone. She also had two additional large stones in her kidney. She was brought to the operating room today for treatment. DESCRIPTION OF PROCEDURE: The patient was brought to the operating room and general anesthesia was induced. Prophylactic antibiotics infused. She was placed in the dorsal lithotomy position and prepped and draped in the usual sterile fashion. A rigid cystoscope was inserted in the urethral meatus and into the bladder. A guidewire was advanced up the right collecting system. The previously placed right ureteral stent was removed. I then advanced the ureteral access sheath up the right collecting system. I went up the access sheath with a flexible ureteroscope; and within the right renal pelvis, a greater than 1 cm size stone was seen. The stone was fragmented into smaller pieces using a 272 micron laser fiber. All the large fragments were removed using a basket. The other two large stones were then also fragmented into tiny pieces using the laser. Once satisfied all the stone fragments were tiny enough to pass, a retrograde pyelogram was performed. It was notable for mild right hydronephrosis with no extravasation. I then withdrew the ureteroscope along the access sheath and no additional stones were seen inside the ureter. I utilized the guidewire to advance the 6 Yoruba x 22 32 cm JJ ureteral stent up the right collecting system. The wire was removed and there were adequate curls of the stent in right renal pelvis and in the bladder. The bladder was emptied of all fluids and this marked the conclusion of the procedure. The patient was taken out of the dorsal lithotomy position, awakened from anesthesia and transferred to the recovery room in stable condition. ESTIMATED BLOOD LOSS: 5 mL. COMPLICATIONS: None. SPECIMENS: Kidney stones fragments. PLAN: This patient will follow up in urology clinic in a few weeks with imaging prior to assess for residual stone burden. Assuming all the stone fragments have passed at that point, will remove her stent. [facility]
[2021-06-10 14:11] LABS: CA Oxalate Dihy 50 % (.); Ca Ox Monohydrate 50 % (.); Size 3x5 mm (.)
== END 2021-06-05 19:25 | disposition home or self-care (01) ==
LOC: M SDC 12:38
PROVIDERS: ATTEND Urology
DX: N20.0 Calculus of kidney (principal); I10 Essential (primary) hypertension; E78.00 Pure hypercholesterolemia, unspecified; K57.92 Diverticulitis of intestine, part unspecified, without perforation or abscess without bleeding; M19.90 Unspecified osteoarthritis, unspecified site; G62.9 Polyneuropathy, unspecified; Z87.891 Personal history of nicotine dependence; Z88.0 Allergy status to penicillin; Z88.1 Allergy status to other antibiotic agents; Z91.048 Other nonmedicinal substance allergy status; Z79.899 Other long term (current) drug therapy
CPT/HCPCS: 52356; 74420; 82365; 88300; C1769; C1894; C2617; J0131; J1100; J2250; J2405; J3010; Q9961

== ENCOUNTER → 2021-06-13 | Outpatient (CLI) | payer MEDICARE ==
[~2021-06-13] MED LIST changes: -CIPROFLOXACIN 400 MG in IV 1 EA IV ONE; -LIDOCAINE 1% MDV 20ML VIAL SQ PRN; -LR 1,000 ML IV ONE
--- NOTE | 2021-06-13 14:33 | REP ---
INDICATION: KIDNEY STONE. COMPARISON: 04/28/2021 FINDINGS: The calcifications seen previously superimposed at least in part over the right nephric silhouette are no longer present. A double pigtail stent has been placed on the right the proximal portion of which is in the region of the renal pelvis and the distal portion of which is in the region of the urinary bladder on the right. Two round calcifications are again seen in the left mid abdomen at the L4-5 level status quo. There are left upper quadrant calcifications status quo. Intestinal gas pattern is nonspecific. There is no significant change in the osseous structures. IMPRESSION: As above <Electronically signed by Juarez Sweet > 06/13/21 [id number]
== END ==
LOC: M WUC 13:01
PROVIDERS: ATTEND Urology
DX: N20.0 Calculus of kidney (principal)

== ENCOUNTER → 2021-12-22 | Outpatient (CLI) | payer MEDICARE ==
[~2021-12-22] MED LIST changes: -D31000TA2 PO; -LISI20TA20 PO; +LISI20TA37 PO; +VITA100093 PO
== END ==
LOC: M WUC 14:24
PROVIDERS: ATTEND Urology
DX: N20.2 Calculus of kidney with calculus of ureter (principal); Z98.890 Other specified postprocedural states

== ENCOUNTER → 2022-12-20 | Outpatient (CLI) | payer MEDICARE | LOC: M WUC 10:35 | PROVIDERS: ATTEND Urology | DX: N20.0 Calculus of kidney (principal) ==

== ENCOUNTER → 2024-01-16 | Outpatient (CLI) | payer MEDICARE ==
[2024-01-16 12:02] LABS: BASO # 0.1 10^3/uL (0.0-0.2); BASO % 0.7 % (0.0-1.0); EOS # 0.2 10^3/uL (0.0-0.5); EOS % 2.1 % (0.0-3.0); HEMATOCRIT 37.1 % (36.0-47.0); HEMOGLOBIN 11.7 g/dl (12.0-15.5); LYMPH # 1.9 10^3/uL (1.5-5.0); MEAN CORPUSCULAR HEMOGLOBIN 28.7 pg (27.0-33.0); MEAN CORPUSCULAR HGB CONC 31.5 g/dl (32.0-36.5); MEAN CORPUSCULAR VOLUME 90.9 fl (80.0-96.0); MONO # 0.6 10^3/uL (0.0-0.8); MONO % 7.1 % (2.0-8.0); NEUTROPHILS # 5.3 10^3/uL (1.5-8.5); NEUTROPHILS % 65.5 % (36.0-66.0); PLATELET COUNT, AUTOMATED 247 10^3/uL (150-450); RED BLOOD COUNT 4.08 10^6/uL (4.00-5.40)
[2024-01-16 12:17] LABS: ALKALINE PHOSPHATASE 54 U/L (46-116); ALT/SGPT 16 U/L (7.0-40); AST/SGOT 12 U/L (<34); BILIRUBIN,TOTAL 0.7 MG/DL (0.3-1.2); BLOOD UREA NITROGEN 20 MG/DL (9-23); CARBON DIOXIDE LEVEL 27 MMOL/L (20-31); CHLORIDE LEVEL 107 MMOL/L (98-107); CHOLESTEROL LEVEL 145 MG/DL (<200); CHOLESTEROL RISK RATIO 3.38 (<5); CREATININE FOR GFR 0.59 MG/DL (0.55-1.30); GLOMERULAR FILTRATION RATE > 60.0 (>32); GLUCOSE, FASTING 86 MG/DL (74-106); HDL CHOLESTEROL 42.8 MG/DL (>40); LDL CHOLESTEROL 83.4 MG/DL (<100); NON-HDL-C 102.2 MG/DL; POTASSIUM SERUM 4.3 MMOL/L (3.5-5.1); SODIUM LEVEL 142 MMOL/L (136-145); TOTAL PROTEIN 6.2 G/DL (5.7-8.2); TRIGLYCERIDES LEVEL 94 MG/DL (<150)
== END ==
LOC: M WUC 08:56
PROVIDERS: ATTEND Family Medicine
DX: I10 Essential (primary) hypertension (principal)

== ENCOUNTER → 2024-12-14 | Outpatient (CLI) | payer MEDICARE ==
[2024-12-14 11:57] LABS: IONIZED CALCIUM 5.3 MG/DL (4.5-5.3)
[2024-12-14 12:10] LABS: BASO # 0.1 10^3/uL (0.0-0.2); BASO % 0.7 % (0.0-1.0); EOS # 0.1 10^3/uL (0.0-0.5); EOS % 1.5 % (0.0-3.0); HEMOGLOBIN 11.5 g/dl (12.0-15.5); LYMPH # 1.9 10^3/uL (1.5-5.0); LYMPH % 25.8 % (24.0-44.0); MEAN CORPUSCULAR HEMOGLOBIN 29.3 pg (27.0-33.0); MEAN CORPUSCULAR HGB CONC 32.9 g/dl (32.0-36.5); MEAN CORPUSCULAR VOLUME 89.1 fl (80.0-96.0); MONO # 0.5 10^3/uL (0.0-0.8); MONO % 7.2 % (2.0-8.0); NEUTROPHILS # 4.8 10^3/uL (1.5-8.5); NEUTROPHILS % 64.3 % (36.0-66.0); PLATELET COUNT, AUTOMATED 244 10^3/uL (150-450); RED BLOOD COUNT 3.93 10^6/uL (4.00-5.40); WHITE BLOOD COUNT 7.4 10^3/uL (4.0-10.0)
[2024-12-14 12:38] LABS: ALBUMIN 3.9 G/DL (3.2-5.2); BILIRUBIN,TOTAL 0.6 MG/DL (0.3-1.2); CALCIUM LEVEL 10.6 MG/DL (8.3-10.6); CHOLESTEROL RISK RATIO 3.64 (<5); CREATININE FOR GFR 0.59 MG/DL (0.55-1.30); GLOMERULAR FILTRATION RATE 86.6 (>32); HDL CHOLESTEROL 41.1 MG/DL (>40); LDL CHOLESTEROL 80.9 MG/DL (<100); NON-HDL-C 108.9 MG/DL; POTASSIUM SERUM 4.3 MMOL/L (3.5-5.1); TOTAL PROTEIN 6.8 G/DL (5.7-8.2)
[2024-12-14 12:39] LABS: PTH INTACT 123.7 PG/ML (18.5-88.0)
[2024-12-14 12:40] LABS: TOTAL 25(OH) VITAMIN D 55.6 NG/ML (20.0-100.0)
== END ==
LOC: M LAB 11:02
PROVIDERS: ATTEND Family Medicine
DX: E83.52 Hypercalcemia (principal); E78.00 Pure hypercholesterolemia, unspecified